=== PATIENT | male | born 1930 | race Caucasian/White ===

== ENCOUNTER 2020-01-10 02:27 | Observation (INO) | payer OTHER ==
[~2020-01-10] VITALS: Ht 172.7 cm; Wt 77.6 kg
[2020-01-10 05:10] LABS: ABSOLUTE BASOPHILS 0.1 thou/uL (0.0-0.2); ABSOLUTE EOSINOPHILS 0.4 thou/uL (0.0-0.7); ABSOLUTE LYMPHOCYTES 1.7 thou/uL (0.8-5.3); ABSOLUTE MONOCYTES 0.7 thou/uL (0.0-1.2); ABSOLUTE NEUTROPHILS 4.9 thou/uL (1.6-8.1); BASOPHILS 1.4 %; EOSINOPHILS 4.8 %; HEMATOCRIT 38.3 % (42.0-52.0); HEMOGLOBIN 13.8 gm/dL (14.0-18.0); LYMPHOCYTES 21.6 %; MCH 32.5 pg (26.0-34.0); MCHC 36.1 g/dL (28.0-37.0); MCV 90.2 fL (80.0-100.0); MONOCYTES 8.8 %; NUCLEATED RBCS 0 /100WBC; PLATELET COUNT* 340 thou/uL (150-400); POLYS 63.4 %; RBC 4.25 mil/uL (4.50-6.00); RDW-CV 13.6 % (10.5-14.5); WBC 7.7 thou/uL (4.0-11.0)
[2020-01-10 05:11] LABS: URINE BILIRUBIN NEGATIVE (Negative); URINE BLOOD NEGATIVE (Negative); URINE CLARITY CLEAR; URINE COLOR YELLOW; URINE GLUCOSE-RANDOM 1+ (Negative); URINE KETONES NEGATIVE (Negative); URINE LEUKOCYTES NEGATIVE (Negative); URINE NITRITE NEGATIVE (Negative); URINE PROTEIN TRACE (Negative); URINE UROBILINOGEN 0.2 E.U./dl (0.2-1.0)
[2020-01-10 05:12] LABS: PROTIME 10.3 Seconds (9.20-11.50)
[2020-01-10 05:14] LABS: ANION GAP 9 mmol/L (7-16); BUN 11 mg/dL (7-18); CHLORIDE 96 mmol/L (98-107); CO2 26 mmol/L (21-32); CREATININE 1.6 mg/dL (0.6-1.3); POTASSIUM 3.4 mmol/L (3.5-5.1); SODIUM 131 mmol/L (136-145)
[2020-01-10 05:15] LABS: ALKALINE PHOSPHATASE 90 U/L (46-116); CALCIUM 8.5 mg/dL (8.5-10.1); GLUCOSE 180 mg/dL (70-99); NT-PRO BRAIN NAT PEPTIDE 167 pg/mL (<300); SGOT 19 U/L (15-37); SGPT 34 U/L (30-65); TOTAL BILIRUBIN 0.5 mg/dL (<0.1-1.0); TOTAL PROTEIN 7.5 g/dL (6.4-8.2); TROPONIN-I LEVEL <0.06 ng/mL (<0.06)
--- NOTE | 2020-01-10 05:51 | NUR ---
PLEASE SEE PAPER DOCUMENTATION
[2020-01-10 06:17] VITALS: BP 106/55
[2020-01-10 06:20] VITALS: BP 171/75
[2020-01-10 08:02] VITALS: BP 148/70
[2020-01-10] MEDS ORDERED: HYDRALAZINE 5050 MG PO (08:28)
[2020-01-10] MEDS ORDERED: COREG6.25 MG PO (08:30)
[2020-01-10] MEDS ORDERED: CARVEDILOL25 MG PO (08:30)
[2020-01-10] MEDS ORDERED: AMLODIPINE BESY10 MG PO (08:31)
[2020-01-10] MEDS ORDERED: B12 ACTIVE1000 MCG PO (08:32)
[2020-01-10] MEDS ORDERED: ZOCOR 20 MG TAB20 M1 PO (08:32)
[2020-01-10] MEDS ORDERED: LOSARTAN POTAS100 MG PO (08:33)
[2020-01-10] MEDS ORDERED: ASA81BEC PO (08:33)
[2020-01-10] MEDS ORDERED: TRAZODONE HCL50 MG PO (08:34)
--- NOTE | 2020-01-10 09:18 | NUR ---
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
[2020-01-10 13:26] VITALS: BP 179/84
--- NOTE | 2020-01-10 13:38 | EKG ---
[place] [address] ELECTROCARDIOGRAM REPORT Name: AMBER DELAROSA Room: [address]#: [id number] Admission: 01/10/20 Attend Phys: Ralph Alberto, Discharge: Date of : [birth year] Date of Service: 01/10/20 0235 Report #: [id number] THIS REPORT FOR: //name// [facility] ED Test Date: 2020-01-10 Test Time: 02:35:28 Pat Name: AMBER DELAROSA Department: Room: [address] Gender: M [employer]: [place] : 1930 Requested By: Ralph Alberto Order Number: [id number] Balbina MD: William Rm Measurements Intervals [place] Rate: 60 P: 7 WA: 228 QRS: -14 QRSD: 104 T: -4 QT: 464 QTc: 464 Interpretive Statements Sinus rhythm Prolonged WA interval Borderline T abnormalities, inferior leads No previous ECG available for comparison Electronically Signed On 01-10-2020 13:38:05 CDT by William Rm [email or web address] <ELECTRONICALLY SIGNED> By: William Rm MD, [facility] 01/10/20 1338 0235 0235 William Rm MD, [facility] /EPI
[2020-01-10 14:19] LABS: CALCIUM 8.4 mg/dL (8.5-10.1); CREATININE 1.6 mg/dL (0.6-1.3); MAGNESIUM 1.7 mg/dL (1.8-2.4); POTASSIUM 4.2 mmol/L (3.5-5.1)
--- NOTE | 2020-01-10 15:27 | 2DMMODE ---
[place] [address] 2 D/M-MODE ECHOCARDIOGRAM Name: AMBER DELAROSA Room: [address] M.R.#: [id number] Admission: 01/10/20 Attend Phys: Ralph Alberto, Discharge: Date of : [birth year] Date of Service: 01/10/20 1527 Report #: [id number] THIS REPORT FOR: cc: Kierra Anaya MD, Emily G. MD Blick,William [place] MD [facility] ~ APPROVED REPORT Study performed: 01/10/2020 14:01:48 EXAM: Comprehensive 2D, Doppler, and color-flow Echocardiogram Patient Location: In-Patient BSA: 1.89 HR: 64 bpm BP: 148/70 mmHg Other Information Study Quality: Fair Indications Syncope AMS 2D Dimensions IVSd: 16.66 (7-11mm) LVOT Diam: 18.55 (18-24mm) LVDd: 34.37 mm PWd: 15.30 (7-11mm) Ascending Ao: 27.82 (22-36mm) LVDs: 25.24 (25-40mm) Aortic Root: 26.01 mm Volumes Left Atrial Volume (Systole) LA ESV Index: 24.60 mL/m2 Aortic Valve AoV Peak Steve.: 1.17 m/s AO Peak Gr.: 5.44 mmHg LVOT Max P.45 mmHg AO Mean Gr.: 3.06 mmHg LVOT Mean P.55 mmHg LVOT Max V: 0.93 m/s AO V2 VTI: 20.30 cm LVOT Mean V: 0.55 m/s MOUSTAPHA (VTI): 2.69 cm2 LVOT V1 VTI: 20.18 [place] [address] 2 D/M-MODE ECHOCARDIOGRAM Name: AMBER DELAROSA Room: [address] M.R.#: [id number] Admission: 01/10/20 Attend Phys: Ralph Alberto, Discharge: Date of : [birth year] Date of Service: 01/10/20 1527 Report #: [id number] E/A Ratio: 0.46 MV Decel. Time: 352.23 ms MV E Max Steve.: 0.59 m/s MV PHT: 102.15 ms MVA (PHT): 2.15 cm2 TDI E/Lateral E': 6.56 E/Medial E': 11.80 Medial E' Steve.: 0.05 m/s Lateral E' Steve.: 0.09 m/s Pulmonary Valve PV Peak Steve.: 0.94 m/s PV Peak Gr.: 3.53 mmHg Tricuspid Valve RAP Estimate: 5.00 mmHg TR Peak Gr.: 24.22 mmHg RVSP: 29.22 mmHg PA Pressure: 29.22 mmHg Left Ventricle The left ventricle is normal size. Regional wall motion is not well visualized. Mild concentric left ventricular hypertrophy. Left ventricular systolic function is normal. The left ventricular ejection fraction is within the normal range. LVEF is 60-65%. Grade I - abnormal relaxation pattern. Right Ventricle The right ventricle is normal size. The right ventricular systolic function is normal. Atria The left atrium size is normal. Interatrial septum not well visualized. The right atrium size is normal. Aortic Valve The Aortic valve is sclerotic. No aortic regurgitation is present. There is no aortic valvular stenosis. Mitral Valve The mitral valve is normal in structure. Mild mitral annular calcification. There is no mitral valve regurgitation noted. No evidence of mitral valve stenosis. Tricuspid Valve The tricuspid valve is normal in structure. Trace [place]icus[place] [address] 2 D/M-MODE ECHOCARDIOGRAM Name: DELAROSAAMBER Room: [address]#: [id number] Admission: 01/10/20 Attend Phys: Ralph Alberto, Discharge: Date of : [birth year] Date of Service: 01/10/20 1527 Report #: [id number] Pulmonic Valve Pulmonic valve is not well visualized. There is no pulmonic valvular regurgitation. Great Vessels The aortic root is normal in size. IVC is not visualized. Pericardium There is no pericardial effusion. <Conclusion> LVEF is 60-65%. Regional wall motion is not well visualized. The Aortic valve is sclerotic. Mild concentric left ventricular hypertrophy. <ELECTRONICALLY SIGNED> By: William Rm MD, [facility] 01/10/20 1527 1527 1527 William Rm MD, FACC /INF
[2020-01-10 16:00] VITALS: BP 137/70; BP 140/64; BP 152/71
[2020-01-10] MEDS ORDERED: METFORMIN HCL500 M3 PO (16:23)
[2020-01-10 20:00] VITALS: BP 159/66
[2020-01-11] VITALS: BP 110/40
[2020-01-11 04:00] VITALS: BP 108/50
--- NOTE | 2020-01-11 06:40 | NUR ---
ASSUMED PT CARE AT 1905. NURSING ASSESSMENT COMPLETED AT START OF SHIFT. 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 HOURLY ROUNDING COMPLETED. PT ANXIOUS AND C/O OF UNABLE TO SLEEP. DR. DELAROSA NOTIFIED AND NEW ORDERS RECEIVED. PT ABLE TO SLEEP THIS SHIFT. PT WOKE UP CONFUSED AT APPROX. 0445. PT REORIENTED AND REASSURED OF SITUATION. CALL LIGHT WITHIN REACH.
[2020-01-11 07:47] VITALS: BP 185/72
[2020-01-11 08:22] LABS: CALCIUM 8.4 mg/dL (8.5-10.1); CREATININE 1.4 mg/dL (0.6-1.3); POTASSIUM 4.1 mmol/L (3.5-5.1)
[2020-01-11 08:54] VITALS: BP 185/72
--- NOTE | 2020-01-11 09:12 | NUR ---
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, TRACING SB WITH 1ST DEGREE- UPON ASSESSMENT PT NOTED TO BE RESTING IN BED- PT A&O X4, FRGETFULL- CONT OF BOWEL AND BLADDER- ASSIST X1 WITH TRANSFERS FOR SAFETY- LCTA/DIMINISHED IN BASES- VSS, O2 SAT 96% ON RA- ABD SOFT/ROUND/NON-TENDER, BS X4 QUADS- LAST BM REPORTED 01/10/20- IV NOTED TO RIGHT FA INTACT, IVF INFUSSING PRESCRIBED- GOOD PO INTAKE NOTED THIS AM WITH BREAKFAST, BS MONITORED ORDERED WITH ORAL MEDICATIONS AND SSI PRESCRIBED- PT DENIES ANY C/O PAIN/DISCOMFORT AT THIS TIME- CALL LIGHT AND PERSONAL BELONGINGS WITH IN REACH- HOURLY ROUNDS IN PLACE R/T SAFETY/NEEDS- ALL NEEDS MET AT THIS TIME-WCTM
[2020-01-11 13:09] VITALS: BP 161/65
[2020-01-11] MEDS ORDERED: ASPIRIN325 PO (15:00)
--- NOTE | 2020-01-12 13:45 | CON ---
[address] [address] CONSULTATION Name: WASHINGTONAMBER Room: [address] Nurys Tran#: [id number] Admission: 01/10/20 Attend Phys: Ralph Alberto MD Discharge: 01/11/20 Date of : [birth year] Report #: [id number] THIS REPORT FOR: //name// cc: Kirera Anaya MD, Emily G. MD ~ THIS REPORT FOR: //name// CC: Ralph Anaya MD DATE OF SERVICE: 01/10/2020 CARDIOLOGY CONSULTATION HISTORY OF PRESENT ILLNESS: The patient is an 89-year-old single white male who I was asked to see in the hospital today after he complained of being dizzy. The patient has no previous history of heart disease. Apparently a year ago, he fell after a brief loss of consciousness. He was not admitted at that time. The patient is originally from [place]. Recently, he has had episodes where he has had problems with balance and the room spinning. However, he denied any recent fever, cough, vomiting, diarrhea, or bleeding. He has had no seizure activity. Last night, he went up to the restroom. He then felt weak and nauseated. He felt the room spinning. He called the ambulance and brought here to [facility] and admitted. I was asked to see him for further evaluation and treatment. He denies a history of shortness of breath, edema, palpitations. He does have occasional sharp pain under his left breast that is not related to food. Denied trauma. PAST MEDICAL HISTORY: He has had eye surgery. He has a history of hypertension. MEDICATIONS: On admission consisted of amlodipine, aspirin, carvedilol, hydralazine, losartan, simvastatin. ALLERGIES: He has no known drug allergies. FAMILY HISTORY: Negative for heart disease. SOCIAL HISTORY: He is , lives with son here in [place]. No smoking or alcohol abuse. REVIEW OF SYSTEMS: No history of stroke. He wears glasses. No history of asthma, peptic ulcer disease, liver disease, kidney disease, cancer, psychiatric illness, [place] [address] CONSULTATION Name: AMBER DELAROSA [address] [id number] Admission: 01/10/20 Attend Phys: Ralph Alberto MD Discharge: 01/11/20 Date of : [birth year] Report #: [id number] PHYSICAL EXAMINATION: GENERAL: Revealed an elderly male, lying in bed, appeared in no distress. VITAL SIGNS: He had a blood pressure of 130/70, pulse is 60. He was afebrile. HEENT: He was anicteric. Conjunctivae are pink. Mucous membranes moist. NECK: Veins do not appear distended. No carotid bruits. CHEST: Clear to auscultation. CARDIOVASCULAR: Regular rate and rhythm, no murmur. ABDOMEN: Soft. EXTREMITIES: Had no edema. Posterior tibial pulse 2+ bilaterally. SKIN: Cool and dry. NEUROLOGIC: Nonfocal. RADIOLOGICAL DATA: ECG shows a sinus rhythm, no significant ST or T-wave change. His workup last night in the Emergency Room, he had a CT scan of the head without contrast that showed atrophy, chronic white matter vascular disease. No acute abnormality. His chest x-ray showed normal heart size, clear lung ulrich. LABORATORY DATA: Sodium 131, potassium 3.4, creatinine 1.6, glucose 180. Troponin 0.06. BNP 167. White blood cell count 7.7, hemoglobin 13.8. IMPRESSION AND RECOMMENDATIONS: 1. Lightheadedness and dizziness. Possibly related to medications. I would decrease his beta tima. I would consider discharging the patient with a 30-day monitor to rule out any arrhythmia. 2. Hypertension. The patient is on a calcium tima, beta tima, hydralazine and ARB. 3. Hyperlipidemia. The patient is on a statin drug. 4. Atypical chest pain. Recommend no further cardiac evaluation. <ELECTRONICALLY SIGNED> By: William Rm MD, [facility] 01/12/20 1345 1301 [id number] Rm MD, FAC /nt
--- NOTE | 2020-01-15 12:39 | CON ---
[address] [address] CONSULTATION Name: WASHINGTONAMBER Room: [address] Nurys Tran#: [id number] Admission: 01/10/20 Attend Phys: Ralph Alberto MD Discharge: 01/11/20 Date of : [birth year] Report #: [id number] THIS REPORT FOR: //name// cc: Kierra Anaya MD, Emily G. MD ~ THIS REPORT FOR: //name// CC: Ralph Anaya DATE OF SERVICE: 01/10/2020 HISTORY OF PRESENT ILLNESS: This is an 89-year-old male patient who was seen by me because he had an episode where he was standing and he felt dizzy. He does not think he fully passed out. Cardiology saw him and they think it was the medication. He never had this kind of episode before. He looks pretty anxious, but he is not on any medication and he thinks anxiety is only part of his problem. REVIEW OF SYSTEMS: Indicate that he had this episode. He never had this episode before. He had some chest pain, which Cardiology thinks is noncardiac. He denies any prior history of stroke. Presently, he does not think he has so much headache. He does not think there is any new eye, ENT, respiratory, GI, , musculoskeletal, constitutional, dermatological, hematological, psychiatric, throat, allergic symptom associated with present symptomatology. PAST MEDICAL HISTORY: Negative for any stroke. FAMILY HISTORY: Negative for early age stroke. SOCIAL HISTORY: He does not smoke or drink any alcohol. PHYSICAL EXAMINATION: NEUROLOGIC: Indicate he is alert. He is responsive. He looks anxious. His higher function and speech looks intact. His cranial nerve examination 2-12 looks mostly unremarkable. His reflexes are diminished. Rest of the neuromuscular examination is nonsymmetrical. His position sense is intact. I could not look at the fundus. His [id number] looks reasonably well. VITAL SIGNS: His blood pressure is 179/84, respirations 19, pulse is 75, and temperature is 98.6. White count is 7.7. His pulses appear to be palpable. CARDIAC: Examinations appear unremarkable. LUNGS: No respiratory difficulty was noticed. NECK: He does not have any thyroid mass. HEENT: His hearing and vision look adequate. GENERAL: He is well-built, [place] [address] CONSULTATION Name: AMBER DELAROSA Room: [address]#: [id number] Admission: 01/10/20 Attend Phys: Ralph Alberto MD Discharge: 01/11/20 Date of : [birth year] Report #: [id number] LABORATORY DATA: White count is normal. His sodium is low at 131. His estimated GFR is 41. IMPRESSION: This patient's spell is secondary to medication according to Cardiology. It will be desirable to exclude any HEAD OF MOBILE etiology in this patient. For that he needs an MRI and MRA. We will see if it can be done. He does have a metal put in long time ago, but we will find out if his MRI compatible or not. Thank you very much for this referral. <ELECTRONICALLY SIGNED> By: Jori Alicea MD 01/15/20 1239 1720 [id number] Alicea MD /nt
--- NOTE | 2020-01-15 12:39 | EEG ---
[address] [address] EEG STUDY REPORT Name: AMBER DELAROSA Room: [address] Nurys M.RKari#: [id number] Admission: 01/10/20 Attend Phys: Ralph Alberto MD Discharge: 01/11/20 Date of : [birth year] Report #: [id number] THIS REPORT FOR: //name// CC: Ralph Alberto Kierra Anaya DATE OF SERVICE: 01/10/2020 This patient is being evaluated for syncope. EEG was done by placing the electrode by standard 10-20 system of electrode placement. Both referential and sequential montages were used for recording. Background activity in this patient's EEG is about 9 Hz and 30 microvolt. This patient became drowsy and that is associated with bilateral slowing and vertex sharp waves. Photic stimulation is unremarkable. Throughout the record, no active epileptiform activity was noticed. IMPRESSION: This patient's EEG is unremarkable. Thank you very much for this referral. <ELECTRONICALLY SIGNED> By: Jori Alicea MD 01/15/20 1239 1345 [id number] Alicea MD /nt
== END 2020-01-11 15:27 | disposition home or self-care (01) ==
LOC: M.ERS 02:27 → M.TBA-ER 05:09 → M.2W 05:09 → M.TBA-ER 05:09 → M.ERS 05:09 → M.TBA-ER 06:21 → M.2W 07:01
PROVIDERS: Internal Medicine; Personal Emergency Response Attendant; ADMIT Internal Medicine; ATTEND Internal Medicine
DX: R55 Syncope and collapse (principal); R53.1 Weakness; E11.9 Type 2 diabetes mellitus without complications; I10 Essential (primary) hypertension; R11.0 Nausea; R51 Headache